=== PATIENT | female | born 2000 | race Caucasian/White ===

== ENCOUNTER 2021-12-06 18:19 | Observation (INO) ==
[2021-12-06] MEDS: SODIUM CHLORIDE 0.9% 1000ML 1,000 ML IV SCH (18:49)
[2021-12-06 18:54] LABS: Hematocrit (blood only) 23.3 % (37-47); Hemoglobin 6.3 g/dL (12.0-16.0); Mean Corpuscular Hemoglobin 18.7 pg (25-34); Mean Corpuscular Volume 69.1 fL (80-100); Mean Platelet Volume 9.2 fL (7.4-10.4); Platelet Count 350 K/uL (130-400); RDW Coefficient of Variation 16.8 % (11.5-14.5); RDW Standard Deviation 42.6 fL (36.4-46.3); Red Blood Count 3.37 M/uL (4.2-5.4); White Blood Count 5.25 K/uL (4.8-10.8)
[2021-12-06] MEDS ORDERED: SODIUM CHLORIDE 0.9% 250 ML IV PRN (19:02)
[2021-12-06 19:05] LABS: Partial Thromboplastin Ratio 0.8; Partial Thromboplastin Time 20.5 Seconds (21.0-31.0); Prothrombin Time 9.7 Seconds (9.0-12.0)
[2021-12-06 19:14] LABS: BUN Creatinine Ratio 26.9 (10-20); Creatinine Clr Calc Pharmacy 110.6 ml/min; Est GFR (Non-African American) 108.7 ml/min; Potassium 3.5 mmol/L (3.5-5.1)
[2021-12-06 19:19] LABS: Basophils # (auto) 0.01 K/uL (0-0.2); Basophils % (auto) 0.2 %; Eosinophils # (auto) 0.08 K/uL (0-0.5); Eosinophils % (auto) 1.5 %; Hypochromasia Present; Lymphocytes # (auto) 1.32 K/uL (1.2-3.4); Lymphocytes % (auto) 25.1 %; Microcytosis Present; Monocytes % (auto) 5.7 %; Neutrophils # (auto) 3.54 K/uL (1.4-6.5); Neutrophils % (auto) 67.5 %; Polychromasia 1+
--- NOTE | 2021-12-06 21:05 | Ultrasound Report ---
PELVIC ULTRASOUND, TRANSABDOMINAL AND TRANSVAGINAL HISTORY: abnormal vaginal bleeding COMPARISON: Abdomen and pelvis CT 09/04/2021. FINDINGS: Transvaginal scanning performed for better delineation of the ovaries. Uterus: The uterus is retroflexed and measures 8.4 x 4.4 x 5.1 cm. Endometrial stripe: Heterogeneous material and fluid within the endometrium which measures up to 6 mm in thickness. No color flow identified to suggest an endometrial lesion. Therefore, this favors bloo d products/clot. Right ovary: Normal in size and demonstrates normal color flow. Left ovary: Normal in size and demonstrates normal color flow. Miscellaneous:Trace pelvic free fluid. This is likely physiologic. IMPRESSION: Heterogeneous material and fluid within the endometrium which measures up to 6 mm in thickness. No co lisa flow identified to suggest an endometrial lesion. Therefore, this favors blood products/clot. ACT 112: Negative or not required by law. Electronically signed by: Ronal Vasquez M.D. 12/06/2021 9:04 PM
--- NOTE | 2021-12-06 21:59 | History & Physical Report ---
Date of Service December 06, 2021 Assessment & Plan (1) Menorrhagia: Plan: Patient receiving 2 units packed red blood cells from the emergency room physician team. The bleeding at this time when she was examined was found to be fairly minimal however her hemoglobin is quite low I would agree the 2 units would be farley because this bleeding was so heavy it brought her in tonight again and she was not previously September I decided to admit her for observation we will start her on IV Premarin daily discussed the risks of nausea and blood clots we will start her on compression stockings as well. We will reassess her count in the morning discussed possible 23-hour admission we also discussed switching her control pill or considering an IUD when things are more stable and we will arrange for follow-up in the office once her bleeding has stabilized ultrasound was reviewed as well reveals no significant abnormalities lining 6 mm History of Present Illness Primary Care Provider: [facility] 21-year-old woman who presents with on and off very heavy vaginal bleeding bleeding 2 weeks at a time then 2 weeks off this has been going on since September 2021 she is on the control pill at this time and has been on for a number of years should be noted that prior to this her periods were regular so she does not have a long history of being on this time since starting in September of heavy prolonged.. Allergies Allergy/AdvReac Type Severity Reaction Status Date / Time No Known Allergies Allergy Unverified 12/06/21 19:12 Home Medications Medication Instructions Recorded Confirmed Type norgestimate 0.18 mg/0.215 mg/0.25 1 tab PO HS 09/04/21 12/06/21 History mg-ethinyl estradiol 25 mcg tablet ([id number]) Patient History Medical History No pertinent past medical history Social History Smoking Status: Never smoker Preferred Language: Luxembourgish Feels Safe at Home: Yes Results & Data ([facility]) Vital Signs (Past 12 Hours) Vital Signs Temp Pulse Pulse Resp BP BP Pulse Ox 12/06/21 21:24 97.9 F 100 H 16 125/70 98 12/06/21 21:11 110 H 16 98 12/06/21 21:05 97.9 F 113 H 16 135/63 100 01/31/22 18:47 103 H 16 114/84 98 12/06/21 18:46 98 12/06/21 18:21 98.8 F 106 H 20 125/62 100 Code Status & VTE Plan VTE Prophylaxis Plan VTE Prophylaxis will be ordered: Yes Coding Level of Care Code 68241 Office/OBS Consult Lvl 3 Diagnoses Menorrhagia N92.0
--- NOTE | 2021-12-07 00:51 | Emergency Department Note ---
History of Present Illness General Chief complaint: Abnormal Labs/Diagnostic Testing Stated complaint: LOW HEMOGLOBIN Time Seen by Provider: 12/06/21 18:25 History of Present Illness Provider Complaint: + vaginal bleeding Onset (ago): week(s) 2 Maximum Pain Intensity: 2 Current Pain Intensity: 0 Duration: intermittent Relieved By: + none Exacerbated By: + none Urinary symptoms: + None Vaginal discharge: + blood Patient Confirmed : No Associated symptoms: + vaginal bleeding; no vaginal discharge, no abdominal pain, no nausea/vomiting, no fever/chills, no headaches, no loss of appetite, no rash, no seizure, no shortness of breath or no syncope 21-year-old female presents emergency department for vaginal bleeding. Patient reports she has been having vaginal bleeding for last 2 months. She reports that she bleeds for approximately 2 weeks consistently and then stops bleeding for 2 weeks. Patient reports that she has been going through 6-7 super plus tampons a day for the last week. Patient reports she went to [facility] who did blood work and said her hemoglobin level was low so they referred her to the emergency department today. Patient has never had a blood transfusion before. No melena or hematochezia. No nausea or vomiting. Patient states there is no chance she is . Home Medications Medication Instructions Recorded Confirmed Type norgestimate 0.18 mg/0.215 mg/0.25 1 tab PO HS 09/04/21 12/06/21 History mg-ethinyl estradiol 25 mcg tablet ([id number]) Allergies Allergy/AdvReac Type Severity Reaction Status Date / Time No Known Allergies Allergy Unverified 12/06/21 19:12 Past Med/Surg History Medical History No pertinent family history No pertinent past medical history Surgical History No pertinent past surgical history Social History Smoking Status: Never smoker Preferred Language: [place] Citizen Feels Safe at Home: Yes Review of Systems A total of 10 systems reviewed and were otherwise negative Physical Exam Vital Signs: Vital Signs - 24 hr 12/06/21 18:21 12/06/21 18:46 12/06/21 18:47 Temperature 37.1 C Temperature Source Temporal Artery Sc an Pulse Rate 106 H Pulse Rate [Apical ] 103 H Pulse Rhythm Regular Pulse Rhythm [Apic al] Pulse Strength Normal Pulse Strength [Ap ical] Respiratory Rate 20 16 Respiratory Effort / Characteristics Non-Labored Sponta neous Respiratory Depth Normal Normal Respiratory Patter n Regular Blood Pressure 125/62 Blood Pressure [Le ft Arm] 114/84 Blood Pressure Jackie n 83 Blood Pressure Jackie n [Left Arm] 94 Blood Pressure Pos ition Sitting Blood Pressure Pos ition [Left Arm] Pulse Oximetry 100 98 98 Oxygen Delivery Me thod Room Air Room Air Room Air Sepsis Recent Feve r Within 48 Hours No Sepsis New/Unexpla ined Change in Men magdaleno Status No Sepsis Action Take n by Nursing No Action Required 12/06/21 21:05 12/06/21 21:11 12/06/21 21:24 Temperature 36.6 C 36.6 C Temperature Source Oral Oral Pulse Rate 113 H 100 H Pulse Rate [Apical ] 110 H Pulse Rhythm Pulse Rhythm [Apic al] Pulse Strength Pulse Strength [Ap ical] Respiratory Rate 16 16 16 Respiratory Effort / Characteristics Respiratory Depth Respiratory Patter n Blood Pressure 135/63 125/70 Blood Pressure [Le ft Arm] Blood Pressure Jackie n 87 88 Blood Pressure Jackie n [Left Arm] Blood Pressure Pos ition Blood Pressure Pos ition [Left Arm] Pulse Oximetry 100 98 98 Oxygen Delivery Me thod Room Air Sepsis Recent Feve r Within 48 Hours Sepsis New/Unexpla ined Change in Men magdaleno Status Sepsis Action Take n by Nursing 12/06/21 23:00 12/06/21 23:47 12/07/21 00:00 Temperature 36.6 C 37.1 C Temperature Source Oral Oral Pulse Rate 105 H 92 H Pulse Rate [Apical ] 106 H Pulse Rhythm Regular Regular Pulse Rhythm [Apic al] Regular Pulse Strength Normal Normal Pulse Strength [Ap ical] Normal Respiratory Rate 16 16 14 Respiratory Effort / Characteristics Non-Labored Sponta neous Respiratory Depth Normal Respiratory Patter n Regular Blood Pressure 125/70 113/73 Blood Pressure [Le ft Arm] 125/70 Blood Pressure Jackie n 88 86 Blood Pressure Jackie n [Left Arm] 88 Blood Pressure Pos ition Lying Sitting Blood Pressure Pos ition [Left Arm] Lying Pulse Oximetry 99 99 99 Oxygen Delivery Me thod Room Air Sepsis Recent Feve r Within 48 Hours Sepsis New/Unexpla ined Change in Men magdaleno Status Sepsis Action Take n by Nursing 12/07/21 00:20 12/07/21 00:35 Temperature 37.1 C 36.6 C Temperature Source Oral Oral Pulse Rate 87 94 H Pulse Rate [Apical ] Pulse Rhythm Regular Pulse Rhythm [Apic al] Pulse Strength Normal Pulse Strength [Ap ical] Respiratory Rate 16 19 Respiratory Effort / Characteristics Respiratory Depth Respiratory Patter n Blood Pressure 111/61 106/67 Blood Pressure [Le ft Arm] Blood Pressure Jackie n 77 80 Blood Pressure Jackie n [Left Arm] Blood Pressure Pos ition Sitting Blood Pressure Pos ition [Left Arm] Pulse Oximetry 100 100 Oxygen Delivery Me thod Sepsis Recent Feve r Within 48 Hours Sepsis New/Unexpla ined Change in Men magdaleno Status Sepsis Action Take n by Nursing Physical Exam: Physical Exam GENERAL: She is oriented to person, place, and time. She appears well-developed and well-nourished. She does not appear distressed. HENT: Exam performed. -Head: Normocephalic and atraumatic. -Right Ear: External ear normal. No mastoid tenderness. -Left Ear: External ear normal. No mastoid tenderness. -Mouth/Throat: The oropharynx is clear and moist. No trismus in the jaw. No dental abscesses or uvula swelling. No oropharyngeal exudate or tonsillar abscesses. EYES: Conjunctivae and EOM are normal. Pupils are equal, round, and reactive to light. Right eye exhibits no discharge. Left eye exhibits no discharge. No scleral icterus. NECK: Normal range of motion. Neck supple. No JVD present. No spinous process tenderness present. No carotid bruit present. No rigidity. No tracheal deviation and normal range of motion present. No Brudzinski's sign and no Kernig's sign noted. CV: Tachycardic rate, regular rhythm, normal heart sounds and intact distal pulses. There is no peripheral edema. Palpable radial pulses bue. PULM/CHEST: Effort normal and breath sounds normal. No respiratory distress. No stridor. She has no wheezes. She has no rales. -Chest Wall: She exhibits no tenderness. ABD: The abdomen is soft. Bowel sounds are normal. She has no distension. No mass is present. There is no tenderness. There is no rebound, no guarding, no Tolbert's sign and no tenderness at McBurney's point. Rovsig negative : Pelvic exam conducted with female nursing registered nurses Flavia at bedside. Exam was conducted right after the patient took out a super plus tampon. No vaginal bleeding cervical os closed. No cervical motion tenderness. MUSC/SKEL: Normal range of motion. There is no peripheral edema, tenderness or deformity. LYMPH: No cervical adenopathy. NEURO: She is alert and oriented to person, place, and time. She has normal strength. No cranial nerve deficit or sensory deficit. Coordination and gait normal. GCS eye subscore is 4. GCS verbal subscore is 5. GCS motor subscore is 6. Cerebellar tests wnl. SKIN: Pale PSYCH: She has a normal mood and affect. Behavior is normal. Judgment and thought content normal. Course Course 1824: The patient was evaluated in room C12. A complete history and physical exam was performed Cardiac monitoring: An order was placed for continuous cardiac monitoring. The monitor shows a rate of 90 with sinus rhythm Administered Medications Sodium Chloride (Nss 1000ml) 1,000 mls @ 125 mls/hr IV .Q8H CHARI Stop: 01/05/22 18:29 Last Admin: 12/06/21 18:49 Dose: 125 mls/hr Documented by: [id number] Medical Decision Making Laboratory Data Result diagrams: 12/06/21 18:41 12/06/21 18:41 Lab Results 12/06/21 12/06/21 12/06/21 Range/Units 18:41 18:41 18:41 WBC 5.25 (4.8-10.8) K/uL RBC 3.37 L (4.2-5.4) M/uL Hgb 6.3 L* (12.0-16.0) g/dL Hct 23.3 L (37-47) % MCV 69.1 L (80-100) fL MCH 18.7 L (25-34) pg MCHC 27.0 L (32-36) g/dL RDW Std Deviation 42.6 (36.4-46.3) fL RDW Coeff of Glen 16.8 H (11.5-14.5) % Plt Count 350 (130-400) K/uL MPV 9.2 (7.4-10.4) fL Immature Gran % (Auto) 0.0 % Neut % (Auto) 67.5 % Lymph % (Auto) 25.1 % Ferry % (Auto) 5.7 % Eos % (Auto) 1.5 % Baso % (Auto) 0.2 % Neut # (Auto) 3.54 (1.4-6.5) K/uL Lymph # (Auto) 1.32 (1.2-3.4) K/uL Ferry # (Auto) 0.30 (0.11-0.59) K/uL Eos # (Auto) 0.08 (0-0.5) K/uL Baso # (Auto) 0.01 (0-0.2) K/uL Immature Gran # (Auto) 0.00 (0.00-0.02) K/uL Polychromasia 1+ Hypochromasia Present Microcytosis Present PT 9.7 (9.0-12.0) Seconds INR 1.0 (0.9-1.1) APTT 20.5 L (21.0-31.0) Seconds PTT Ratio 0.8 Sodium (136-145) mmol/L Potassium (3.5-5.1) mmol/L Chloride (98-107) mmol/L Carbon Dioxide (21-32) mmol/L Anion Gap (3-11) BUN (6-23) mg/dl Creatinine (0.6-1.2) mg/dl Est Cr Clr Drug Dosing ml/min Est GFR ( Amer) ml/min Est GFR (Non-Af Amer) ml/min BUN/Creatinine Ratio (10-20) Glucose (70-99(Fasting)) mg/dl Calcium (8.5-10.1) mg/dl HCG, Quant mIU/ml SARS-CoV-2, RNA, NAAT (NEGATIVE) Blood Type A Negative Blood Type Recheck Antibody Screen NEGATIVE Crossmatch See Detail 12/06/21 12/06/21 12/06/21 Range/Units 18:41 18:41 19:26 WBC (4.8-10.8) K/uL RBC (4.2-5.4) M/uL Hgb (12.0-16.0) g/dL Hct (37-47) % MCV (80-100) fL MCH (25-34) pg MCHC (32-36) g/dL RDW Std Deviation (36.4-46.3) fL RDW Coeff of Glen (11.5-14.5) % Plt Count (130-400) K/uL MPV (7.4-10.4) fL Immature Gran % (Auto) % Neut % (Auto) % Lymph % (Auto) % Ferry % (Auto) % Eos % (Auto) % Baso % (Auto) % Neut # (Auto) (1.4-6.5) K/uL Lymph # (Auto) (1.2-3.4) K/uL Ferry # (Auto) (0.11-0.59) K/uL Eos # (Auto) (0-0.5) K/uL Baso # (Auto) (0-0.2) K/uL Immature Gran # (Auto) (0.00-0.02) K/uL Polychromasia Hypochromasia Microcytosis PT (9.0-12.0) Seconds INR (0.9-1.1) APTT (21.0-31.0) Seconds PTT Ratio Sodium 139 (136-145) mmol/L Potassium 3.5 (3.5-5.1) mmol/L Chloride 109 H (98-107) mmol/L Carbon Dioxide 23 (21-32) mmol/L Anion Gap 7 (3-11) BUN 21 (6-23) mg/dl Creatinine 0.78 (0.6-1.2) mg/dl Est Cr Clr Drug Dosing 110.6 ml/min Est GFR ( Amer) 126.0 ml/min Est GFR (Non-Af Amer) 108.7 ml/min BUN/Creatinine Ratio 26.9 H (10-20) Glucose 106 H (70-99(Fasting)) mg/dl Calcium 9.0 (8.5-10.1) mg/dl HCG, Quant < 1 mIU/ml SARS-CoV-2, RNA, NAAT (NEGATIVE) Blood Type Blood Type Recheck A Negative Antibody Screen Crossmatch 12/06/21 Range/Units 21:50 WBC (4.8-10.8) K/uL RBC (4.2-5.4) M/uL Hgb (12.0-16.0) g/dL Hct (37-47) % MCV (80-100) fL MCH (25-34) pg MCHC (32-36) g/dL RDW Std Deviation (36.4-46.3) fL RDW Coeff of Glen (11.5-14.5) % Plt Count (130-400) K/uL MPV (7.4-10.4) fL Immature Gran % (Auto) % Neut % (Auto) % Lymph % (Auto) % Ferry % (Auto) % Eos % (Auto) % Baso % (Auto) % Neut # (Auto) (1.4-6.5) K/uL Lymph # (Auto) (1.2-3.4) K/uL Ferry # (Auto) (0.11-0.59) K/uL Eos # (Auto) (0-0.5) K/uL Baso # (Auto) (0-0.2) K/uL Immature Gran # (Auto) (0.00-0.02) K/uL Polychromasia Hypochromasia Microcytosis PT (9.0-12.0) Seconds INR (0.9-1.1) APTT (21.0-31.0) Seconds PTT Ratio Sodium (136-145) mmol/L Potassium (3.5-5.1) mmol/L Chloride (98-107) mmol/L Carbon Dioxide (21-32) mmol/L Anion Gap (3-11) BUN (6-23) mg/dl Creatinine (0.6-1.2) mg/dl Est Cr Clr Drug Dosing ml/min Est GFR ( Amer) ml/min Est GFR (Non-Af Amer) ml/min BUN/Creatinine Ratio (10-20) Glucose (70-99(Fasting)) mg/dl Calcium (8.5-10.1) mg/dl HCG, Quant mIU/ml SARS-CoV-2, RNA, NAAT NEGATIVE (NEGATIVE) Blood Type Blood Type Recheck Antibody Screen Crossmatch Imaging Data Radiologist's Impression: Pelvis Ultrasound 12/06/21 18:26 PELVIC ULTRASOUND, TRANSABDOMINAL AND TRANSVAGINAL HISTORY: abnormal vaginal bleeding COMPARISON: Abdomen and pelvis CT 09/04/2021. FINDINGS: Transvaginal scanning performed for better delineation of the ovaries. Uterus: The uterus is retroflexed and measures 8.4 x 4.4 x 5.1 cm. Endometrial stripe: Heterogeneous material and fluid within the endometrium which measures up to 6 mm in thickness. No color flow identified to suggest an endometrial lesion. Therefore, this favors blood products/clot. Right ovary: Normal in size and demonstrates normal color flow. Left ovary: Normal in size and demonstrates normal color flow. Miscellaneous:Trace pelvic free fluid. This is likely physiologic. IMPRESSION: Heterogeneous material and fluid within the endometrium which measures up to 6 mm in thickness. No color flow identified to suggest an endometrial lesion. Therefore, this favors blood products/clot. ACT 112: Negative or not required by law. Electronically signed by: Ronal Vasquez M.D. 12/06/2021 9:04 PM [facility] Narrative Labs show hemoglobin of 6.3. Patient be transfused 2 units packed red blood cells. Ultrasound shows heterogeneous material and fluid within the endometrium which measures up to 6 mm in thickness. No color flow identified to suggest an endometrial lesion. Discussed the case with Dr. Ceferino Lyon [employer] who states he will admit the patient to his service. I did discuss the plan with the patient and mother over FaceTime and they are both in agreement. Impression & Plan Menorrhagia, Anemia Critical Care Time Critical Care Time: Yes Total Critical Care Time: 50 I have personally spent greater than 50 minutes of critical care time in the direct management of this patient. This includes bedside care, interpretation of diagnostic studies, and testing, discussion with consultants, patient, and family members, and other required patient management activities. This 50 minutes is in excess of all separately billable procedures. Discharge Plan Visit Data Chief Complaint: Abnormal Labs/Diagnostic Testing Stated Complaint: LOW HEMOGLOBIN Discharge Problem: Menorrhagia, Anemia Patient Disposition: Admitted As Inpatient Forms Stand Alone Forms: [facility] [place] [employer] Prescriptions Prescriptions: No Action norgestimate-ethinyl estradiol [[id number]] 0.18/0.215/0.25 mg-25 mcg tablet 1 tab PO HS RF: 0 Referrals Referrals: [facility] [Primary Care Provider] -
[2021-12-07] MEDS: ESTROGENS, CONJUGATED 25 MG in SYRINGE 0 ML IV SCH ×3 (02:55→15:17)
[2021-12-07] MEDS: SODIUM CHLORIDE 0.9% 1000ML 1,000 ML IV SCH ×2 (02:56→11:10)
[2021-12-07 06:33] LABS: Hematocrit (blood only) 27.8 % (37-47); Hemoglobin 8.3 g/dL (12.0-16.0); Mean Corpuscular Hemoglobin 21.5 pg (25-34); Mean Corpuscular Hgb Conc 29.9 g/dL (32-36); Mean Platelet Volume 9.1 fL (7.4-10.4); Platelet Count 245 K/uL (130-400); RDW Coefficient of Variation 18.7 % (11.5-14.5); RDW Standard Deviation 49.2 fL (36.4-46.3); Red Blood Count 3.86 M/uL (4.2-5.4); White Blood Count 6.49 K/uL (4.8-10.8)
[2021-12-07 06:52] LABS: Basophils # (auto) 0.02 K/uL (0-0.2); Basophils % (auto) 0.3 %; Eosinophils # (auto) 0.07 K/uL (0-0.5); Eosinophils % (auto) 1.1 %; Hypochromasia Present; Immature Granulocytes # (auto) 0.01 K/uL (0.00-0.02); Immature Granulocytes % (auto) 0.2 %; Lymphocytes % (auto) 26.2 %; Monocytes # (auto) 0.61 K/uL (0.11-0.59); Monocytes % (auto) 9.4 %; Neutrophils # (auto) 4.08 K/uL (1.4-6.5); Neutrophils % (auto) 62.8 %
--- NOTE | 2021-12-07 07:23 | Gynecologic Progress Note ---
Date of Service December 07, 2021 Assessment & Plan (1) Menorrhagia: Plan: Her bleeding is subsided substantially although she still has a small amount she is tolerating the IV Premarin Zofran has been ordered she is only had 1 dose at this stage her hemoglobin is reviewed post transfusion as well our plan is to get the bleeding to essentially stop with the IV Premarin and then transition her to an outpatient therapy I will try and see the patient on Monday in the office and we can discuss a more long-term plan the hope is she will be able to just be discharged later in the day (2) Anemia: Admission and Anticipated Discharge Date Admission Date: December 06, 2021 Results & Data ([facility]) Vital Signs (Past 12 Hours) Vital Signs Temp Pulse Pulse Pulse Resp BP BP 12/07/21 02:27 98.4 F 89 18 110/64 12/07/21 02:12 97.9 F 102 H 16 105/59 L 12/07/21 02:01 97.9 F 102 H 16 108/54 L 12/07/21 01:50 102 H 18 113/59 L 12/07/21 01:49 97.7 F 102 H 18 113/59 L 12/07/21 00:50 97.9 F 98 H 16 118/64 12/07/21 00:35 97.9 F 94 H 19 106/67 12/07/21 00:20 97.9 F 94 H 16 118/64 12/07/21 00:00 98.8 F 92 H 14 113/73 12/06/21 23:47 97.9 F 105 H 16 125/70 12/06/21 23:00 106 H 16 125/70 12/06/21 21:24 97.9 F 100 H 16 125/70 12/06/21 21:11 110 H 16 12/06/21 21:05 97.9 F 113 H 16 135/63 Pulse Ox 12/07/21 02:27 12/07/21 02:12 100 12/07/21 02:01 100 12/07/21 01:50 98 12/07/21 01:49 98 12/07/21 00:50 100 12/07/21 00:35 100 12/07/21 00:20 100 12/07/21 00:00 99 12/06/21 23:47 99 12/06/21 23:00 99 12/06/21 21:24 98 12/06/21 21:11 98 12/06/21 21:05 100 PG Care Time/CCT Total # of Minutes Spent Total Time Spent with Patient: Total time spent is greater than 50% in coordination of care (as documented) at patient's floor/unit and/or counseling patient: Coding Level of Care Code 83591 Subseq Hosp Care Lvl 2 Diagnoses Menorrhagia N92.1 Menorrhagia type: with irregular cycle Anemia D64.9 Anemia type: unspecified type (1) Menorrhagia Menorrhagia type: with irregular cycle Qualified Code(s): N92.1 - Excessive and frequent menstruation with irregular cycle (2) Anemia Anemia type: unspecified type Qualified Code(s): D64.9 - Anemia, unspecified
[2021-12-07] MEDS: ONDANSETRON INJ 2 MG/ML 2 ML VIAL IV PRN ×2 (08:29→14:43)
--- NOTE | 2021-12-07 09:19 | Electrocardiogram Report ---
Test Reason : Blood Pressure : / mmHG Vent. Rate : 103 BPM Atrial Rate : 103 BPM P-R Int : 146 ms QRS Dur : 082 ms QT Int : 342 ms P-R-T Axes : 065 084 056 degrees QTc Int : 448 ms Sinus tachycardia Possible Left atrial enlargement RSR' or QR pattern in V1 suggests right ventricular conduction delay Borderline ECG When compared with ECG of 04-SEP-2021 15:44, No significant change was found Confirmed by Saul Funez ([id number]) on 12/07/2021 9:19:36 AM Referred By: REFERRED SELF Confirmed By:Saul Funez
[2021-12-07] MEDS ORDERED: ESTROGENS, CONJUGATED 0.625 MG TAB PO SCH (21:00)
--- NOTE | 2021-12-12 17:46 | Discharge Summary ---
Date of Service December 12, 2021 Admission HPI Per Admitting Provider Pleasant 21-year-old woman who presents with on and off very heavy vaginal bleeding bleeding 2 weeks at a time then 2 weeks off this has been going on since September 2021 she is on the control pill at this time and has been on for a number of years should be noted that prior to this her periods were regular so she does not have a long history of being on this time since starting in September of heavy prolonged.. Discharge Data Consultations 12/06/21 21:25 ED Decision to Admit Stat Hospital Course (1) Menorrhagia: Her bleeding is subsided substantially although she still has a small amount she is tolerating the IV Premarin Zofran has been ordered she is only had 1 dose at this stage her hemoglobin is reviewed post transfusion as well our plan is to get the bleeding to essentially stop with the IV Premarin and then transition her to an outpatient therapy I will try and see the patient on Monday in the office and we can discuss a more long-term plan the hope is she will be able to just be discharged later in the day she was discharged by dr church later in the day (2) Anemia: Coding Level of Care Code None Diagnoses Menorrhagia N92.1 Menorrhagia type: with irregular cycle Anemia D64.9 Anemia type: unspecified type
== END 2021-12-07 18:20 | disposition home or self-care (01) ==
LOC: 4S2 18:19 → ED 18:19 → 4S2 12-07 02:12